=== PATIENT | male | born 1975 | race Caucasian/White ===

== ENCOUNTER 2022-06-05 22:01 | Emergency (ER) | payer MEDICAID ==
[~2022-06-05] VITALS: Ht 177.8 cm; Wt 93.0 kg
[2022-06-05 22:29] VITALS: BP_SYST 100
--- NOTE | 2022-06-05 22:40 | NUR ---
Pt BIBA from home, c/o LUQ pain yesterday, states he felt a "bulge" and pushed it back in, pain went away. States around 2144 pain and bulge returned and he pushed it in again. Now denies pain. Denies n/v/d. VSS. Pt placed in bed 6, report given to Crystal BLANTON and Dr. Arguelles.
--- NOTE | 2022-06-05 22:50 | NUR ---
MINOR RICHEY at bedside examining patient.
--- NOTE | 2022-06-05 23:05 | NUR ---
XRAY AT BEDSIDE
[2022-06-05] MEDS ORDERED: IBUP-1969 PO (23:27)
[2022-06-05] MEDS ORDERED: METH-634 PO (23:27)
--- NOTE | 2022-06-05 23:55 | NUR ---
PT PROVIDED URINE
[2022-06-06 00:02] LABS: BASOPHILS # (AUTO) 0.1 K/uL (0.0-0.2); BASOPHILS % (AUTO) 0.8 % (0.0-2.0); EOSINOPHILS # (AUTO) 0.1 K/uL (0.0-0.4); EOSINOPHILS % (AUTO) 1.8 % (0.0-4.0); HEMATOCRIT 43.6 % (36-54); LYMPHOCYTES # (AUTO) 1.9 K/uL (1.0-5.5); LYMPHOCYTES % (AUTO) 24.1 % (20.5-51.5); MEAN CORPUSCULAR VOLUME 89 fL (79.0-98.0); MONOCYTES # (AUTO) 0.5 K/uL (0.0-1.0); MONOCYTES % (AUTO) 5.8 % (1.7-9.3); NEUTROPHILS # (AUTO) 5.4 K/uL (1.8-7.7); NEUTROPHILS % (AUTO) 67.5 % (40.0-70.0); PLATELET COUNT (AUTO) 241 K/uL (130-430); RED BLOOD CELL COUNT(AUTO) 4.89 MIL/uL (4.2-6.2); RED CELL DISTRIBUTION WIDTH 13.9 % (9.0-15.0); WHITE BLOOD COUNT (AUTO) 8.1 K/uL (4.8-10.8)
[2022-06-06 00:07] LABS: CREATININE 1.07 mg/dL (0.55-1.30); POTASSIUM 3.6 mmol/L (3.5-5.1)
[2022-06-06] MEDS ORDERED: METH-634 PO (00:19)
[2022-06-06] MEDS ORDERED: IBUP-1969 PO (00:19)
[2022-06-06 00:21] LABS: ALBUMIN 4.2 g/dL (3.4-4.8); TOTAL BILIRUBIN 0.4 mg/dL (0.0-1.0)
[2022-06-06 00:36] VITALS: BP_SYST 100
--- NOTE | 2022-06-06 00:36 | NUR ---
Patient given written and verbal discharge instructions and verbalizes understanding. ER MD discussed with patient the results and treatment provided. Patient in stable condition. ID arm band removed. Rx of Ibuprofen and Methocarbamol given. Patient educated on pain management and to follow up with PMD. Pain Scale 2/10. Opportunity for questions provided and answered. Medication side effect fact sheet provided. Patient A/Ox4, VSS, ambulatory, resp even and unlabored. Nad noted at this time. Patient in stable condition and accompained by significant other at this time.
[2022-06-06 00:53] LABS: BILIRUBIN,URINE NEGATIVE (NEGATIVE); CLARITY/URINE CLEAR (CLEAR); COLOR,URINE YELLOW (YELLOW); GLUCOSE,URINE NEGATIVE (NEGATIVE); KETONES,URINE 1+ (NEGATIVE); LEUKOCYTE ESTERASE ,URINE NEGATIVE (NEGATIVE); NITRITE, URINE NEGATIVE (NEGATIVE); PROTEIN URINE NEGATIVE (NEGATIVE); UROBILINOGEN,URINE 0.2 (0.2-1.0)
[2022-06-06 00:54] LABS: BLOOD, URINE TRACE (NEGATIVE)
[2022-06-06 01:25] LABS: RBC,URINE 0-3 /HPF (0-3); WBC,URINE NONE SEEN /HPF (0-3)
[2022-06-06 01:26] LABS: BACTERIA,URINE None Seen /HPF (None Seen); MUCUS,URINE None Seen /LPF (None Seen)
== END 2022-06-06 00:36 | disposition home or self-care (01) ==
LOC: SED 22:01
DX: M62.838 Other muscle spasm (principal); F12.90 Cannabis use, unspecified, uncomplicated; Z79.899 Other long term (current) drug therapy
CPT/HCPCS: 36415; 74018; 80053; 81000; 83690; 85025; 99284